=== PATIENT | male | born 1975 | race Caucasian/White ===

== ENCOUNTER 2024-12-21 19:55 | Emergency (ER) | payer OTHER, SELFPAY ==
[2024-12-21] VITALS (25 sets, daily range): BP systolic 100–155; BP diastolic 83–104; PULSE 45–109; TEMP 35.3–36.6; O2SAT 93–100
[2024-12-21] MEDS: NALOXONE HCL 2 MG/2 ML SYRINGE IV ×2 (19:55→19:56)
[2024-12-21] MEDS: NALOXONE HCL 2 MG/2 ML SYRINGE INJ (19:55)
--- NOTE | 2024-12-21 20:02 | ECG_ITS ---
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 Measurements Intervals Joes Rate: 67 P: -[id number] VT: 150 QRS: -1 QRSD: 104 T: -4 QT: 468 QTc: 484 Interpretive Statements Normal sinus rhythm Lateral myocardial infarction, age undetermined [id number] Inferior myocardial infarction with posterior extension, age undetermined Nonspecific ST abnormalities 0102 ARTIFACT PRESENT 9150 abnormal ECG No previous ECG available for comparison Electronically Signed On 12-22-2024 8:11:00 EDT by ANDRIY HODGE M.D.
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
[2024-12-21 20:09] LABS: Basophils Absolute Auto 0.1 10^3/uL (0.0-0.1); Basophils Percent Auto 0.6 % (0.2-2.0); Eosinophils Absolute Auto 0.2 10^3/uL (0.0-0.7); Eosinophils Percent Auto 2.6 % (0.9-7.0); Hematocrit 40.2 % (42.0-54.0); Hemoglobin 13.6 g/dL (14.0-18.0); Immature Granulocytes Abs Auto 0.02 10^3/uL (0.00-0.03); Immature Granulocytes Pct Auto 0.3 % (0.0-0.5); Lymphocytes Absolute Auto 2.1 10^3/uL (1.2-3.8); Lymphocytes Percent Auto 26.6 % (20.5-60.0); Mean Corpuscular HGB Conc 33.8 g/dL (29.9-35.2); Mean Corpuscular Hemoglobin 31.5 pg (25.9-34.0); Mean Corpuscular Volume 93.1 fL (80.0-94.0); Mean Platelet Volume 9.9 fL (9.5-13.5); Monocytes Absolute Auto 1.1 10^3/uL (0.3-0.8); Monocytes Percent Auto 13.6 % (1.7-12.0); Neutrophils Absolute Auto 4.4 10^3/uL (1.4-6.5); Neutrophils Percent Auto 56.3 % (43.0-75.0); Platelet Count 220 10^3/uL (150-450); Red Blood Count 4.32 10^6/uL (4.70-6.10); White Blood Count 7.8 10^3/uL (4.0-11.0)
--- NOTE | 2024-12-21 20:10 | PC.NURSE ---
Received call from [facility] that there is a family member bringing in an unresponsive 49 year old male who is not breathing. Pt dropped off in ambulance bay by uncle. Pt brought into ed room 5 and has snoring respirations. 1951 1mg narcan given intranasally. Pt being bagged at this time. 98% sp02 and 45 pulse. 1952 Clothes removed and pt placed on crash cart monitor and room monitor. 1954 20g IV placed in right AC. Blood drawn. 1 mg narcan given intranasally. Sp02 100%. HR 45. 1955 1mg narcan given IV. 1956 BP 100/73 HR 50 100% 1957 pt awake, moving and breathing spontaneously HR 51 100% on room air, lethargic and mumbling
[2024-12-21] MEDS: IPRATROPIUM/ALBUTEROL SULFATE 3 ML AMPUL.NEB IH (20:11)
[2024-12-21 20:31] LABS: Alanine Aminotransferase 14 U/L (16-63); Albumin Globulin Ratio 1.2; Albumin Level 3.6 g/dL (3.4-5.0); Alkaline Phosphatase 109 U/L (46-116); Anion Gap 9.3; Aspartate Amino Transferase 20 U/L (15-37); BUN Creatinine Ratio 8.4; Bilirubin Total 0.3 mg/dL (0.2-1.0); Calcium 8.8 mg/dL (8.5-10.1); Carbon Dioxide 28.5 mmol/L (21.0-32.0); Chloride 105 mmol/L (98-107); Estimated GFR (African America >60 (>=60 mL/min/1.73m^2); Estimated GFR (Non-African Ame 58 (>=60 mL/min/1.73m^2); Globulin 3.1 g/dL; Glucose 110 mg/dL (74-106); Potassium 3.8 mmol/L (3.5-5.1); Sodium 139 mmol/L (136-145); Total Protein 6.7 g/dL (6.4-8.2)
[2024-12-21 20:33] LABS: Lactate/Lactic Acid 1.4 mmol/L (0.4-2.0)
[2024-12-21 20:34] LABS: Ethanol <3 mg/dL; Troponin I High Sensitivity 13.8 pg/mL (4.0-76.1)
== END 2024-12-21 23:29 | disposition home or self-care (01) ==
PROVIDERS: Emergency Provider Emergency Medicine
DX: T50.901A Poisoning by unspecified drugs, medicaments and biological substances, accidental (unintentional), initial encounter (principal); R40.4 Transient alteration of awareness; R68.0 Hypothermia, not associated with low environmental temperature
CPT/HCPCS: 36415; 71045; 80053; 80307; 80320; 83605; 84484; 85025; 93005; 94640; 96374; 99291; J1230